=== PATIENT | female | born 1995 | race Caucasian/White ===

== ENCOUNTER 2017-05-04 23:18 | Emergency (ER) | payer MEDICAID ==
[2017-05-04 23:19] VITALS: BMI 30.6
[2017-05-04] MEDS ORDERED: Sodium Chloride 0.9% 1,000 ML ONE (23:25)
[2017-05-04 23:27] VITALS: RESP 20
[2017-05-04] MEDS ORDERED: Sodium Chloride 0.9% 1,000 ML IV ONE (23:38)
--- NOTE | 2017-05-04 23:38 | C.PDOC ---
History Of Present Illness Patient who is 13 weeks , P:1, presents to the ER with a complaint of a dull aching left sided abdominal pain that began at approximately 15:00. Denies fever, nausea, vomiting, or vaginal bleeding. Time Seen by Provider: 05/04/17 23:38 Chief Complaint (Nursing): Abdominal Pain History Per: Patient History/Exam Limitations: no limitations Onset/Duration Of Symptoms: Hrs Current Symptoms Are (Timing): Still Present Severity: Mild Pain Scale Rating Of: 4 Location Of Pain/Discomfort: LUQ, LLQ Radiation Of Pain To:: None Quality Of Discomfort: Dull, Aching Associated Symptoms: denies: Fever, Chills, Nausea, Vomiting, Urinary Symptoms Exacerbating Factors: None Alleviating Factors: None Recent travel outside of the [place]: No Abnormal Vaginal Bleeding: No : 2 Para: 1 Past Medical History Reviewed: Historical Data, Nursing Documentation, Vital Signs Vital Signs: Last Vital Signs Temp 98.5 F 05/04/17 23:23 Pulse 103 H 05/04/17 23:23 Resp 20 05/04/17 23:23 BP 123/87 05/04/17 23:23 Pulse Ox 99 05/04/17 23:51 - Medical History PMH: No Chronic Diseases Surgical History: No Surg Hx Family History: States: Unknown Family Hx - Social History Hx Alcohol Use: No Hx Substance Use: No Review Of Systems Constitutional: Negative for: Fever, Chills Gastrointestinal: Positive for: Abdominal Pain. Negative for: Nausea, Vomiting Genitourinary: Negative for: Vaginal Bleeding Physical Exam - Physical Exam Appears: Non-toxic Skin: Warm, Dry Oral Mucosa: Moist Chest: Symmetrical Cardiovascular: Rhythm Regular Respiratory: No Rales, No Rhonchi, No Wheezing Gastrointestinal/Abdominal: Soft, Tenderness (Left sided) Neurological/Psych: Oriented x3 ED Course And Treatment - Laboratory Results Result Diagrams: 05/05/17 00:08 05/04/17 23:47 O2 Sat by Pulse Oximetry: 99 (Room air) Pulse Ox Interpretation: Normal Progress Note: Blood work, Urinalysis, and pelvic /transvaginal US ordered. Zofran and IV fluids administered. 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 I have reviewed the chart and agree that the record accurately reflects my personal performance of the history, physical exam, medical decision making, and the department course for this patient. I have also personally directed, reviewed, and agree with the discharge instructions and disposition.
[2017-05-04 23:56] LABS: RBC URINE 3 /hpf (0-3); URINE BACTERIA FEW (<OCC); URINE BILIRUBIN NEGATIVE (NEGATIVE); URINE BLOOD NEGATIVE (NEGATIVE); URINE COLOR Yellow (YELLOW); URINE GLUCOSE (UA) NORMAL (Normal); URINE KETONE 2+ mg/dL (NEGATIVE); URINE LEUKOCYTE ESTERASE TRACE Leu/uL (Negative); URINE PROTEIN NEGATIVE (NEGATIVE); URINE UROBILINOGEN NORMAL mg/dL (0.2-1.0); WBC URINE 6 /hpf (0-5)
[2017-05-05 00:11] LABS: ALB/GLOB RATIO 1.2 (1.0-2.1); ALKALINE PHOSPHATASE 59 U/L (38-126); ALT/SGPT 24 U/L (9-52); AST/SGOT 24 U/L (14-36); BILIRUBIN,TOTAL 0.5 mg/dL (0.2-1.3); BLOOD UREA NITROGEN 7 mg/dL (7-17); CALCIUM 9.4 mg/dl (8.6-10.4); CARBON DIOXIDE 21 mmol/L (22-30); CHLORIDE 101 mmol/L (98-107); GFR AFRICAN-AMERICAN > 60; GLUCOSE,RANDOM 87 mg/dL (65-105); POTASSIUM 3.4 mmol/L (3.6-5.2); SODIUM 137 mmol/L (132-148); TOTAL PROTEIN 7.1 g/dL (6.3-8.3)
[2017-05-05 00:18] LABS: BASO # 0.1 K/uL (0.0-0.2); BASO % 0.4 % (0.0-2.0); EOS % 0.3 % (0.0-4.0); HEMATOCRIT 37.1 % (34.0-47.0); LYMPH # 2.6 K/uL (1.0-4.3); LYMPH % 18.6 % (20.0-40.0); MEAN CELL VOLUME 83.7 fL (81.0-99.0); MEAN CORPUSCULAR HEMOGLOBIN 28.7 pg (27.0-31.0); MEAN CORPUSCULAR HGB CONC 34.2 g/dL (33.0-37.0); MEAN PLATELET VOLUME 8.3 fL (7.2-11.7); MONO # 0.8 K/uL (0.0-0.8); MONO % 5.9 % (0.0-10.0); RED CELL DISTRIBUTION WIDTH 13.9 % (11.5-14.5); WHITE BLOOD COUNT 13.9 K/uL (4.8-10.8)
--- NOTE | 2017-05-05 02:15 | US ---
EXAM: US After First Trimester, Transabdominal EXAM DATE/TIME: 05/05/2017 1:00 AM CLINICAL HISTORY: 22 years old, female; Pain; complicated by abdominal or pelvic pain; Lower; Second trimester; Gestational age or lmp: 01/17/17; ; Additional info: 13 weeks preg, left sided abd pain TECHNIQUE: Real-time transabdominal obstetrical ultrasound of the maternal pelvis and a second or third trimester with image documentation. COMPARISON: There are no prior studies for comparison. FINDINGS: Gestation: There is a single living intrauterine gestation in breech presentation. There is a heart rate of 152 beats per minute. Amniotic fluid volume appears normal. Placenta is anterior and grade 0. There is no previa. Anatomy: Early gestational age limits evaluation of anatomy. Fluid is seen in the stomach and bladder. Cord insertion is grossly normal in appearance. 4 chamber heart is not well visualized. BIOMETRICS Gestational age by US: 14 weeks 4 days EFW: 98.1 g BPD: 2.66 cm, 14 weeks 5 days HC: 10.19 cm, 14 weeks 5 days AC: 8.25 cm, 14 weeks 4 days FL: 1.43 cm, 14 weeks 2 days MATERNAL: Left ovary measures 2.7 x 1.7 x 2.3 cm. Right ovary measures 2.3 x 1.8 x 1.9 cm There is flow in both ovaries on Doppler imaging. Cervix measures 3 cm in length. IMPRESSION: 14 week 4 day single breech fetus, estimated date of delivery 10/30/17
[2017-05-05 02:42] VITALS: BP 114/74; PULSE 90; TEMP 97.8; O2SAT 100
== END 2017-05-05 02:45 | disposition home or self-care (01) ==
LOC: C.ER 23:18 → SUPCPDRO 23:18 → C.ER 05-05 02:45
DX: O26.891 Other specified pregnancy related conditions, first trimester (principal); Z3A.13 13 weeks gestation of pregnancy
CPT/HCPCS: 76815; 80053; 81001; 83690; 84702; 84703; 85025; 86850; 86900; 96361; 96374; 99284; J2405; J7040

== ENCOUNTER 2018-11-17 11:17 | Outpatient (CLI) | payer MEDICAID | END 2018-11-17 13:57 | disposition home or self-care (01) | LOC: C.USIC 11:17 | DX: N91.2 Amenorrhea, unspecified (principal) ==